=== PATIENT | male | born 1950 | race Hispanic/Latino ===

== ENCOUNTER 2022-01-25 06:49 | Day surgery (SDC) | payer OTHER ==
[2022-01-25 07:22] LABS: Absolute Lymphocytes (CBC) 1.3 K/uL (0.7-4.9); Hematocrit 37.3 % (39.6-49.0); Lymphocytes % 20.5 % (15.3-44.8); MCV 86.4 fL (80-100); MPV 8.3 fL (7.6-11.3); RBC Red Blood Cell Count 4.32 M/uL (4.33-5.43)
[2022-01-25 07:31] LABS: Protime INR 1.09
[2022-01-25 07:40] LABS: Potassium 3.9 mmol/L (3.5-5.1)
[2022-01-25] MEDS ORDERED: NA CHLORIDE 0.9% 500 ML ONE (08:07)
[2022-01-25 08:18] VITALS: TEMP 97.5; BMI 27.8
[2022-01-25] MEDS ORDERED: FENTANYL CITR 100 MCG/2 ML ONE (08:36)
[2022-01-25] MEDS ORDERED: MIDAZOLAM HCL 2 MG/2 ML INJ ONE (08:36)
[2022-01-25] MEDS ORDERED: NALOXONE 0.4 MG/ML VIAL ONE (08:37)
[2022-01-25] MEDS ORDERED: FLUMAZENIL 0.1 MG/ML (5 mL VIAL) IV ONE (08:37)
--- NOTE | 2022-01-25 10:41 | RAD REPORT ---
EXAM DESCRIPTION: CT - Renal Biopsy CT - 01/25/2022 10:19 am CLINICAL HISTORY: renal biopsy Renal failure COMPARISON: Urinary Bladder dated 01/04/2022; Renal Ultrasound-Complete dated 01/04/2022 FINDINGS: Preoperative diagnosis: Renal failure Post operative diagnosis: Same Conscious Sedation: 45 minutes IV conscious sedation was utilized. IV fentanyl and midazolam was admi nistered. Patient was continuously monitored by nursing staff. Contrast used: NONE Estimated blood loss: less than 5 mL Specimens: 3 x 18 gauge core specimens The patient was placed prone on the table and the right posterior back area was prepped and draped in the usual sterile fashion. 1% lidocaine was infiltrated into the subcutaneous tissues for local anes thesia. Under computed tomographic guidance, a 17 gauge introducer was advanced into the inferior rig ht kidney. Subsequently, a 18 gauge, 15 cm long, 20 mm throw core biopsy gun was advanced into the ki dney and 3 cores were obtained. Postprocedure imaging demonstrated no complications. Samples were given to pathology for analysis. Th e patient tolerated the procedure without immediate complication and transferred to the recovery room in stable condition. IMPRESSION: Successful CT-guided nonfocal renal biopsy. 45 minutes of IV conscious sedation was utilized. All CT scans are performed using dose optimization technique as appropriate and may include automated exposure control or mA/KV adjustment according to patient size.
[2022-01-25 11:07] VITALS: O2SAT 98
[2022-01-25 13:00] VITALS: BP 147/65
== END 2022-01-25 12:20 | disposition home or self-care (01) ==
LOC: DS 06:49
PROVIDERS: ATTEND Internal Medicine
DX: I12.0 Hypertensive chronic kidney disease with stage 5 chronic kidney disease or end stage renal disease (principal); N17.9 Acute kidney failure, unspecified; N02.8 Recurrent and persistent hematuria with other morphologic changes
CPT/HCPCS: 85025; 80048; 36415; 85610; 88300; 85730; 50200; J2250; J3010; J7040; J2310

== ENCOUNTER 2022-09-27 11:08 | Inpatient (IN) | payer OTHER ==
[2022-09-27 11:34] LABS: Hematocrit 34.3 % (39.6-49.0); Lymphocytes % 15.8 % (15.3-44.8); MCV 89.7 fL (80-100); RBC Red Blood Cell Count 3.83 M/uL (4.33-5.43)
[2022-09-27 11:52] LABS: Protime INR 0.88
[2022-09-27 11:55] LABS: Albumin 3.4 g/dL (3.4-5.0); Bilirubin Direct 0.2 mg/dL (0-0.2); Bilirubin Indirect, Calculated 0.4 mg/dL (0.2-0.8); Bilirubin Total 0.6 mg/dL (0.2-1.0); Magnesium 1.9 mg/dL (1.6-2.4); Potassium 3.8 mEq/L (3.5-5.1); Protein, Total 6.8 g/dL (6.4-8.2); Troponin High Sensitivity 13.2 pg/mL (<58.9)
--- NOTE | 2022-09-27 12:14 | EDPHYS ---
Physician Documentation [facility] Name: Abner Dhillon Jr Age: 72 yrs Sex: Male : 1950 Arrival Date: 09/27/2022 Time: 11:08 Bed 2 Private MD: ED Physician Columba Hernandez HPI: 09/27 11:19 This 72 yrs old Male presents to ER via Unassigned with complaints of Chest sp3 Pain. 11:19 72-year-old male with extensive past medical history including diabetes, hypertension, sp3 renal insufficiency now presents to the ED with chief complaint 48 hours of chest pain, chest pressure, left arm pain that started at rest. Patient "mowed the grass" this morning which further elucidated the pain. Currently has mild pain with shortness of breath. On review of systems, he denies headache, neck pain, pain, abdominal pain, nausea, vomiting, diarrhea, travel history, prolonged immobilization, known sick contacts, or any other signs or symptoms at this time.. Historical: - Allergies: 11:20 PENICILLINS; ph - PMHx: 11:20 diabetes mellitus; Hypertensive disorder; ph - PSHx: 11:20 Appendectomy; FÉLIX knee; félix shoulder; ph - Immunization history:: Adult Immunizations unknown. - Social history:: Smoking status: Patient/guardian denies using tobacco, but has a distant history of tobacco abuse. ROS: 11:20 Constitutional: Negative for fever, chills, and weight loss, Eyes: Negative for injury, sp3 pain, redness, and discharge, ENT: Negative for injury, pain, and discharge, Neck: Negative for injury, pain, and swelling, Abdomen/GI: Negative for abdominal pain, nausea, vomiting, diarrhea, and constipation, Back: Negative for injury and pain, MS/Extremity: Negative for injury and deformity, Skin: Negative for injury, rash, and discoloration, Neuro: Negative for headache, weakness, numbness, tingling, and seizure, Psych: Negative for depression, anxiety, suicide ideation, homicidal ideation, and hallucinations, Allergy/Immunology: Negative for hives, rash, and allergies, Endocrine: Negative for neck swelling, polydipsia, polyuria, polyphagia, and marked weight changes, Hematologic/Lymphatic: Negative for swollen nodes, abnormal bleeding, and unusual bruising. 11:20 All other systems are negative. Exam: 11:20 Constitutional: This is a well developed, well nourished patient who is awake, alert, sp3 and in no acute distress. Head/Face: Normocephalic, atraumatic. Eyes: Pupils equal round and reactive to light, extra-ocular motions intact. Lids and lashes normal. Conjunctiva and sclera are non-icteric and not injected. Cornea within normal limits. Periorbital areas with no swelling, redness, or edema. ENT: Nares patent. No nasal discharge, no septal abnormalities noted. External auditory canals are clear. Oropharynx with no redness, swelling, or masses, exudates, or evidence of obstruction, uvula midline. Mucous membranes moist. Neck: Trachea midline, no thyromegaly or masses palpated, and no cervical lymphadenopathy. Supple, full range of motion without nuchal rigidity, or vertebral point tenderness. No Meningismus. Chest/axilla: Normal chest wall appearance and motion. Nontender with no deformity. No lesions are appreciated. Cardiovascular: Regular rate and rhythm with a normal S1 and S2. No gallops, murmurs, or rubs. Normal PMI, no JVD. No pulse deficits. Respiratory: Lungs have equal breath sounds bilaterally, clear to auscultation and percussion. No rales, rhonchi or wheezes noted. No increased work of breathing, no retractions or nasal flaring. Abdomen/GI: Soft, non-tender, with normal bowel sounds. No distension or tympany. No guarding or rebound. No evidence of tenderness throughout. Back: No spinal tenderness. No costovertebral tenderness. Full range of motion. Skin: Warm, dry with normal turgor. Normal color with no rashes, no lesions, and no evidence of cellulitis. MS/ Extremity: Pulses equal, no cyanosis. Neurovascular intact. Full, normal range of motion. Neuro: Awake and alert, GCS 15, oriented to person, place, time, and situation. Cranial nerves II-XII grossly intact. Motor strength 5/5 in all extremities. Sensory grossly intact. Cerebellar exam normal. Normal gait. Psych: Awake, alert, with orientation to person, place and time. Behavior, mood, and affect are within normal limits. 11:20 ECG was reviewed by the Attending Physician. EKG demonstrates normal sinus rhythm at 95 bpm with normal intervals, slight leftward axis, normal QRS, nonspecific diffuse ST/T changes without evidence of acute ischemia. Vital Signs: 11:18 BP 172 / 63; Pulse 101; Resp 18; Temp 97.2; Pulse Ox 99% on R/A; Weight 86.18 kg; ph Height 5 ft. 9 in. ; 12:19 BP 141 / 61; Resp 18; Pulse Ox 98% on R/A; mb9 14:05 BP 147 / 54; Pulse 88; Resp 18; Pulse Ox 98% on R/A; Pain 0/10; mb9 15:19 BP 149 / 59; Pulse 89; Resp 17; Pulse Ox 97% on R/A; Pain 0/10; mb9 11:18 Body Mass Index 28.06 (86.18 kg, 175.26 cm) ph 14:05 Pain Scale: Adult mb9 15:19 Pain Scale: Adult mb9 MDM: 11:17 Patient medically screened. sp3 11:21 Data reviewed: vital signs, nurses notes, lab test result(s), EKG, radiologic studies. sp3 ED course: 72-year-old male with chest pain. Consider acute coronary syndrome, pulmonary pathology including infection, vascular pathology, PE, musculoskeletal pain, nonspecific chest pain. Work-up will include laboratory values, chest x-ray, EKG and general observation. Heart score to be determined and will guide further disposition.. 12:12 ED course: Laboratory results reviewed. No concerning findings. Chest x-ray is normal. sp3 Will place patient in observation status with cardiology consultation for further work-up as needed. Given patient's age, comorbidities and presentation, heart score is moderate in nature.. 09/27 11:17 Order name: Basic Metabolic Panel; Complete Time: 12:10 sp3 09/27 11:17 Order name: CBC with Diff; Complete Time: 12:10 3 09/27 11:17 Order name: LFT's; Complete Time: 12:10 sp3 09/27 11:17 Order name: Magnesium; Complete Time: 12:10 sp3 09/27 11:17 Order name: NT PRO-BNP; Complete Time: 12:10 3 09/27 11:17 Order name: PT-INR; Complete Time: 12:10 3 09/27 11:17 Order name: Troponin HS; Complete Time: 12:10 sp3 09/27 11:22 Order name: D-Dimer sp3 09/27 13:20 Order name: Troponin High Sensitivity EDMS 09/27 13:20 Order name: Troponin High Sensitivity EDMS 09/27 13:20 Order name: Troponin High Sensitivity EDMS 09/27 13:24 Order name: Magnesium EDMS 09/27 13:24 Order name: Phosphorus EDMS 09/27 13:24 Order name: T4 Free EDMS 09/27 13:24 Order name: Thyroid Stimulating Hormone EDMS 09/27 13:24 Order name: Urinalysis w/ reflexes EDMS 09/27 13:24 Order name: CBC with Automated Diff EDMS 09/27 13:24 Order name: CBC with Automated Diff EDMS 09/27 13:24 Order name: Comprehensive Metabolic Panel EDMS 09/27 13:24 Order name: Comprehensive Metabolic Panel EDMS 09/27 11:17 Order name: XRAY Chest (1 view) 3 09/27 13:20 Order name: Echo with Doppler EDMS 09/27 11:17 Order name: EKG; Complete Time: 11:18 sp3 09/27 13:24 Order name: 60g Consistent Carbohydrate (ADA 1800/2000) EDMS 09/27 13:24 Order name: CONS Physician Consult EDMS 09/27 11:17 Order name: Cardiac monitoring; Complete Time: 11:20 sp3 09/27 11:17 Order name: EKG - Nurse/Tech; Complete Time: 11:20 sp3 09/27 11:17 Order name: IV Saline Lock; Complete Time: 11:31 sp3 09/27 11:17 Order name: Labs collected and sent; Complete Time: 11:31 sp3 09/27 11:17 Order name: O2 Per Protocol; Complete Time: 11:20 sp3 09/27 11:17 Order name: O2 Sat Monitoring; Complete Time: 11:20 sp3 Administered Medications: No medications were administered Disposition Summary: 09/27/22 12:13 Hospitalization Ordered Hospitalization Status: Observation sp3 Provider: Juan Carlos Carmona sp3 Location: Telemetry/MedSurg (observation) sp3 Condition: Stable sp3 Problem: new sp3 Symptoms: are unchanged sp3 Bed/Room Type: Standard sp3 Room Assignment: [facility](09/27/22 14:17) bd Diagnosis - Chest pain, unspecified sp3 Forms: - Medication Reconciliation Form sp3 - SBAR form sp3 Signatures: Dispatcher [employer] EDDiana Betancourt Patricia, RN RN Columba Escamilla MD MD sp3 Corrections: (The following items were deleted from the chart) 14:17 12:13 sp3 bd
--- NOTE | 2022-09-27 12:14 | ER ---
Nurse's Notes [facility] Name: Abner Dhillon Jr Age: 72 yrs Sex: Male : 1950 Arrival Date: 09/27/2022 Time: 11:08 Bed 2 Private MD: Diagnosis: Chest pain, unspecified Presentation: 09/27 11:18 Chief complaint: Patient states: Midsternal chest pain radiating to L arm that started ph yesterday, also reports blurred vision and mild SOB. Coronavirus screen: Vaccine status: Patient reports receiving the 2nd dose of the covid vaccine. Ebola Screen: No symptoms or risks identified at this time. Initial Sepsis Screen: Does the patient meet any 2 criteria? No. Patient's initial sepsis screen is negative. Does the patient have a suspected source of infection? No. Patient's initial sepsis screen is negative. Risk Assessment: Do you want to hurt yourself or someone else? Patient reports no desire to harm self or others. Onset of symptoms was September 27, 2022. 11:18 Method Of Arrival: Ambulatory 11:18 Acuity: JOSE 2 ph Historical: - Allergies: 11:20 PENICILLINS; ph - PMHx: 11:20 diabetes mellitus; Hypertensive disorder; ph - PSHx: 11:20 Appendectomy; FÉLIX knee; félix shoulder; ph - Immunization history:: Adult Immunizations unknown. - Social history:: Smoking status: Patient/guardian denies using tobacco, but has a distant history of tobacco abuse. Screenin:06 [facility] ED Fall Risk Assessment (Adult) History of falling in the last 3 months, mb9 including since admission No falls in past 3 months (0 pts) Confusion or Disorientation No (0 pts) Intoxicated or Sedated No (0 pts) Impaired Gait No (0 pts) Mobility Assist Device Used No (0 pt) Altered Elimination No (0 pt) Score/Fall Risk Level 0 - 2 = Low Risk Oriented to surroundings, Maintained a safe environment, Educated pt \T\ family on fall prevention, incl call for assistance when getting out of bed. Abuse screen: Denies threats or abuse. Nutritional screening: No deficits noted. Tuberculosis screening: No symptoms or risk factors identified. Assessment: 14:06 General: Appears in no apparent distress. Behavior is calm, cooperative, appropriate mb9 for age. Pain: Denies pain. Pain:. Neuro: Level of Consciousness is awake, alert, obeys commands, Oriented to person, place, time, situation, Appropriate for age. Cardiovascular: Denies chest pain, Heart tones S1 S2 present Rhythm is regular. Respiratory: Airway is patent Respiratory effort is even, unlabored, Respiratory pattern is regular, symmetrical, Denies shortness of breath. GI: Abdomen is round non-distended, Bowel sounds present X 4 quads. Derm: Skin is pink, warm \T\ dry. 14:21 Reassessment: Bed 212 assigned, attempted to call report, Meghan reports the nurse has jlInga not been notified of pt assignment yet and will call back. 14:54 Reassessment: Attempted to call report, Meghan reports LUCRECIA Martinez unavailable, will jlInga call back. 15:19 Reassessment: Report called to LUCRECIA French. mb9 Vital Signs: 11:18 BP 172 / 63; Pulse 101; Resp 18; Temp 97.2; Pulse Ox 99% on R/A; Weight 86.18 kg; ph Height 5 ft. 9 in. ; 12:19 BP 141 / 61; Resp 18; Pulse Ox 98% on R/A; mb9 14:05 BP 147 / 54; Pulse 88; Resp 18; Pulse Ox 98% on R/A; Pain 0/10; mb9 15:19 BP 149 / 59; Pulse 89; Resp 17; Pulse Ox 97% on R/A; Pain 0/10; mb9 11:18 Body Mass Index 28.06 (86.18 kg, 175.26 cm) ph 14:05 Pain Scale: Adult mb9 15:19 Pain Scale: Adult mb9 ED Course: 11:09 Patient arrived in ED. am2 11:09 Columba Hernandez MD is Attending Physician. sp3 11:20 Triage completed. ph 11:20 Shalini Shepherd, LUCRECIA is Primary Nurse. ko1 11:20 Arm band placed on Patient placed in an exam room, on a stretcher. ph 11:30 Inserted saline lock: 20 gauge in right antecubital area, using aseptic technique. mb9 11:31 Basic Metabolic Panel Sent. ko1 11:31 CBC with Diff Sent. ko1 11:31 LFT's Sent. ko1 11:31 Magnesium Sent. ko1 11:31 NT PRO-BNP Sent. ko1 11:31 PT-INR Sent. ko1 11:31 Troponin HS Sent. ko1 11:32 D-Dimer Sent. ko1 12:05 Primary Nurse role handed off by Shalini Shepherd, RN mb9 12:05 Hannah Ellington, RN is Primary Nurse. mb9 12:13 Juan Carlos Carmona is Hospitalizing Provider. sp3 12:17 XRAY Chest (1 view) In Process Unspecified. EDMS 14:06 Placed in gown. Bed in low position. Call light in reach. Side rails up X 1. Client mb9 placed on continuous cardiac and pulse oximetry monitoring. NIBP monitoring applied. monitor technician on. 14:07 No provider procedures requiring assistance completed. mb9 15:20 Patient admitted, IV remains in place. mb9 Administered Medications: No medications were administered Medication: 14:08 VIS not applicable for this client. mb9 Outcome: 12:13 Decision to Hospitalize by Provider. sp3 15:19 Admitted to Med/surg room 212, with chart, Report called to LUCRECIA French mb9 15:19 Condition: stable 15:19 Instructed on the need for admit. 15:21 Patient left the ED. mb9 Signatures: Dispatcher [employer] EDMS Sarah Marks, RN RN Alesha Kay, RN RN [id number] Bessie Glez Setul, MD MD sp3 Shalini Shepherd, RN RN ko1 Hannah Ellington, RN RN mb9
--- NOTE | 2022-09-27 12:39 | RAD REPORT ---
EXAM DESCRIPTION: Ian Single View09/27/2022 12:15 pm CLINICAL HISTORY: CHEST PAIN COMPARISON: CHEST PA AND LAT 2 VIEW dated 06/15/2007 TECHNIQUE: Portable AP view of the chest. FINDINGS: The lungs are clear.Right peripheral basal rounded density measuring 1.3 centimeter is sta ble and may reflect a calcified granuloma. No pneumothorax or effusion. The cardiomediastinal contour s are unremarkable. IMPRESSION: No acute cardiopulmonary process.
[2022-09-27] MEDS ORDERED: HYDROCODONE/APAP 5/325 MG TAB PO PRN (13:18)
[2022-09-27] MEDS ORDERED: ACETAMINOPHEN 325 MG TABLET PO PRN (13:18)
[2022-09-27] MEDS ORDERED: ONDANSETRON 4 MG/2 ML VIAL IV PRN (13:21)
[2022-09-27] MEDS ORDERED: ASPIRIN 81 MG CHEWABLE TABLET PO ONE (13:21)
[2022-09-27] MEDS ORDERED: GLUCAGON 1 MG/VIAL IM PRN (13:23)
[2022-09-27] MEDS ORDERED: D10W 250 ML BAG IV PRN (13:26)
--- NOTE | 2022-09-27 13:26 | P.HP ---
Certification for Inpatient Patient admitted to: Observation With expected LOS: <2 Midnights Patient will require the following post-hospital care: None Practitioner: I am a practitioner with admitting privileges, knowledge of patient current condition, hospital course, and medical plan of care. Services: Services provided to patient in accordance with Admission requirements found in Title 42 Section 412.3 of the Code of Federal Regulations Patient History Date of Service: 09/27/22 Reason for admission: Chest pain History of Present Illness: Patient is a 72-year-old male with a past medical history significant for DM 2, hypertension, CKD who presents with complaint of substernal chest pain onset this morning. Patient rated pain as 8/10 in severity and described pain as pressure in quality. Patient indicated that pain radiates to his neck. Patient spouse reported that yesterday patient blood pressure has been unstable and patient has been anxious. Patient reported associated signs and symptoms of tingling on the left fingers and generalized malaise. Patient denies any other signs and symptoms. Symptoms are aggravated or relieved by nothing. Patient decided to present to the hospital for medical evaluation. Allergies Penicillins Adverse Reaction (Mild, Verified 01/25/22 06:52) Anaphylaxis Home Medications: Amlodipine [Norvasc] 5 mg PO DAILY 01/25/22 Glipizide [Glipizide ER] 10 mg PO BID 01/25/22 Hydralazine HCl 100 mg PO BID 01/25/22 Metformin ER [Glucophage ER] 500 mg PO TID 01/25/22 Rosuvastatin Calcium 20 mg PO DAILY 01/25/22 - Past Medical/Surgical History -: HTN -: CKD -: HLD -: DM 2 Past Surgical History: Reviewed- Non-Contributory - Family History Father -: Heart disease, Cancer, Other (see notes) (NE ) Notes: Bone cancer Mother -: Cancer Notes: colon cancer - Social History Smoking Status: Former smoker Alcohol use: No CD- Drugs: No Caffeine use: Yes Place of Residence: Home Review of Systems General: Malaise Eyes: Unremarkable ENT: Other (Neck pain) Respiratory: Unremarkable Cardiovascular: Chest Pain Gastrointestinal: Unremarkable Genitourinary: Unremarkable Musculoskeletal: Neck Pain Integumentary: Unremarkable Neurological: Other (Left fingers tingling) Lymphatics: Unremarkable Physical Examination - Physical Exam General: Alert, In no apparent distress, Oriented x3, Cooperative HEENT: Atraumatic, PERRLA, Mucous membr. moist/pink, EOMI, Sclerae nonicteric Neck: Supple, 2+ carotid pulse no bruit, No LAD, Without JVD or thyroid abnormality Respiratory: Clear to auscultation bilaterally, Normal air movement Cardiovascular: No edema, Regular rate/rhythm, Normal S1 S2 Capillary refill: <2 Seconds Gastrointestinal: Normal bowel sounds, Soft and benign, Non-distended, No tenderness Musculoskeletal: No clubbing, No swelling, No contractures, No tenderness Integumentary: No rashes, No breakdown, No significant lesion Neurological: Normal speech, Normal strength at 5/5 x4 extr, Normal tone, Normal affect Lymphatics: No axilla or inguinal lymphadenopathy - Studies Laboratory Data (last 24 hrs) 09/27/22 11:25: PT 10.5, INR 0.88 09/27/22 11:25: WBC 6.30, Hgb 11.7 L, Hct 34.3 L, Plt Count 237 09/27/22 11:25: Sodium 140, Potassium 3.8, BUN 24 H, Creatinine 2.25 H, Glucose 144 H, Magnesium 1.9, Total Bilirubin 0.6, AST 17, ALT 24, Alkaline Phosphatase 52 Assessment and Plan - Plan --Chest pain. To rule out ACS. Will trend serial troponins--negative so far. Cardiology consulted. Echo currently pending to assess LV\valvular function and wall motion. Will await further recommendation from assurance assistant. --CKD 3B. Stable. We will continue to monitor renal functions. Nephrology consulted. Will await further recommendations. --DM2. BS monitoring with sliding scale insulin. --Hypertension. Poorly controlled. Continue home medications and hydralazine as needed. --Anemia of chronic disease. H&H stable. We will continue to monitor hemoglobin and transfuse if less than 7.0. --Hyperlipidemia. Continue statin. --DVT prophylaxis with Lovenox subQ. Discharge Plan: Home Plan to discharge in: 48 Hours - Advance Directives Does patient have a Living Will: No Does patient have a Durable POA for Healthcare: No - Code Status/Comfort Care Code Status Assessed: Yes Physician Review: Patient Assessed, Agree with Above Assessment and Plan
[2022-09-27] MEDS: ENOXAPARIN 40 MG/0.4 ML SQ SCH (14:00)
[2022-09-27] MEDS ORDERED: ASPIRIN 81 MG CHEWABLE TABLET ONE (14:19)
[2022-09-27] MEDS ORDERED: ENOXAPARIN 40 MG/0.4 ML SQ ONE (14:20)
[2022-09-27] MEDS: INSULIN -REGULAR HUMAN 50 UNIT/0.5 ML ML SQ SCH ×2 (16:30→20:42)
[2022-09-27 16:38] VITALS: BMI 28.0
[2022-09-27] MEDS ORDERED: HYDRALAZINE HCL 20 MG/ML VIAL IV PRN (16:39)
[2022-09-27 17:54] LABS: Magnesium 1.9 mg/dL (1.6-2.4); Phosphorus 3.1 mg/dL (2.5-4.9); Thyroid Stimulating Hormone 3.31 uIU/mL (0.358-3.740)
[2022-09-27] MEDS ORDERED: PNEUMOCOCCAL VACCINE 0.5 ML IMVAC ONE (19:00)
[2022-09-27] MEDS: HYDRALAZINE HCL 25 MG TABLET PO SCH (20:41)
[2022-09-27] MEDS: AMLODIPINE 5 MG TAB PO SCH (20:41)
[2022-09-27 22:24] LABS: Specific Gravity 1.014 (1.005-1.030); Urine Bacteria None Seen /HPF (<20); Urine Bilirubin NEGATIVE (Negative); Urine Blood Negative (Negative); Urine Clarity Clear (Clear); Urine Color Light-Yellow (Yellow); Urine Glucose 4+ (Over) (Negative); Urine Mucus Slight /HPF (None Seen); Urine Protein 3+ (Negative); Urine RBC <5 /HPF (None Seen); Urine Urobilinogen Normal (Normal)
[2022-09-27 23:04] LABS: Troponin High Sensitivity 12.7 pg/mL (<58.9)
--- NOTE | 2022-09-28 01:59 | CON ---
Date of Consultation: 09/27/2022 Chief Complaint: Chest pain. History Of Present Illness: The patient presented to the hospital because of chest pain. He was fou nd to have elevated BUN and creatinine level. He has history of chronic kidney disease stage 3. Ser um creatinine previously was 1.8. During this admission, creatinine level is elevated over his previ ous baseline. The patient was complaining of chest pain and generalized weakness. On arrival to the hospital, potassium level was 3.8, sodium 140, BUN 24, and creatinine 2.25. Nephrology consultation is requested for abnormal renal function test. The patient was consulted by veneer sawyer. Echo cur davidtly is pending to assess left ventricular function and wall motion and troponin level was ordered. The patient has history of chronic kidney disease secondary to diabetes mellitus and hypertension ass ociated with proteinuria. The patient is taking multiple medications including metformin and glipizi de as well as Farxiga. The patient was complaining of substernal chest pain and pain has been recurr ent since this morning and rated as 8/10 in severity. He describes pain as pressure in quality. The patient had pain radiation to his neck. He denies syncope. Denies hemoptysis or wheezing. The pat ient has tingling to the left finger in the left upper extremity and complaining of generalized malai se. He denies bleeding from the lower GI. Denies melena or hematemesis. Home Medications: Amlodipine, glipizide, hydralazine, metformin, rosuvastatin as well as Farxiga. Past Medical History: Hypertension, chronic kidney disease stage 3, hyperlipidemia, and diabetes serjio litus type 2 associated with renal insufficiency. Family History: Father with heart disease and cancer. Mother with colon cancer. Social History: Former smoker. Denies alcohol. Denies recreational drugs. Review of Systems: General: Complained of generalized weakness, malaise. Eyes: Denies new vision changes. Ears, Nose, Mouth, And Throat: Denies sore throat or earache. Respiratory: Denies wheezing or hemoptysis. Cardiovascular: Has chest pain as described. : Denies dysuria or hematuria. Neurological: Denied tremor. Hand left finger tingling. Physical Examination: General: The patient is alert, oriented, not in acute distress. Eyes: EOMI. Anicteric sclerae. Neck: Supple. No JVD. No bruits. Respiratory: Clear to auscultation. Normal respiratory movement. Cardiovascular: S1, S2. No pericardial friction or rub. GI: Normal bowel sounds. No rebound. No guarding. Extremities: No edema. No clubbing. No cyanosis. Laboratory Data: WBC 6.3, hemoglobin 11.7, hematocrit 34.3, and platelet count 237. Potassium 3.8, sodium 140, creatinine 2.25, total bilirubin 0.6, magnesium 1.9. Impression And Plan: 1.Chest pain. Cardiology workup was initiated for possible coronary artery disease and acute you ry syndrome. Continue to monitor troponin. Check CK level to evaluate for rhabdomyolysis. 2.Diabetes mellitus. Continue insulin. Avoid metformin and glipizide due to acute kidney injury an d chronic kidney disease. 3.Hyperlipidemia. Continue statin. Check CK level to rule out rhabdomyolysis. Renal ultrasound wa s ordered to rule out hydronephrosis, obstructive uropathy. Monitor bladder scan if needed. 4.Check urinalysis to screen for abnormal sediment and screen proteinuria to evaluate for possible M HOLLY. EB/MODL Voice ID: [id number] Report ID: [id number]
[2022-09-28 03:52] LABS: Absolute Lymphocytes (CBC) 1.2 K/uL (0.7-4.9); Hematocrit 30.5 % (39.6-49.0); Lymphocytes % 26.5 % (15.3-44.8); MPV 8.7 fL (7.6-11.3); RBC Red Blood Cell Count 3.43 M/uL (4.33-5.43)
[2022-09-28 04:20] LABS: Bilirubin Total 0.5 mg/dL (0.2-1.0); Potassium 3.8 mEq/L (3.5-5.1)
--- NOTE | 2022-09-28 06:57 | P.PN ---
Date of Service: 09/28/22 Subjective: feels back to his normal self this morning no chest pain since last night states hes been having vision troubles since ~Tuesday (same feeling as when they dilate eyes) - resolved this morning when he woke up states BP was high at homes - 150-180s systolic ROS: 10 point ROS as noted above, otherwise negative Physical Exam: GEN: Alert, oriented, NAD HEENT: Normal conjunctiva, sclera anicteric CV: Regular rate and rhythm, no edema Pulm: Nonlabored respirations on room air ABD: Soft, nontender, nondistended Neuro: Normal speech, normal affect, no focal defecit vitals reviewed Problem List: Chest pain blurred vision, acute CKD 3B NIDDM2 Hypertension Anemia of chronic disease Hyperlipidemia Chest pain Troponin - negative x3 multiple risk factors Echo currently pending Cardiology consulted recommends stress test - ordered for 09/28 blurred vision unclear etiology CVA vs HTN resolved CT brain 09/28 ordered; r/o CVA CKD 3B Stable. continue to monitor renal function Nephrology consulted. renal u/s 09/28 - mild echogenic kidneys b/l 24hr urine collection ordered - started 09/28 AM NIDDM2 sliding scale insulin hold metformin Hypertension Poorly controlled. Continue home medications and hydralazine as needed Anemia of chronic disease H&H stable. continue to monitor hemoglobin and transfuse if less than 7.0. Hyperlipidemia Continue statin VTE: Lovenox Code: Full Dispo: Home, anticipate tomorrow pending urine studies / collection, stress test results
[2022-09-28] MEDS: INSULIN -REGULAR HUMAN 50 UNIT/0.5 ML ML SQ SCH ×4 (07:30→21:00)
[2022-09-28] MEDS ORDERED: REGADENOSON 0.4 MG/5 ML SYR IV ONE (08:00)
[2022-09-28] MEDS: ENOXAPARIN 40 MG/0.4 ML SQ SCH (09:00)
[2022-09-28] MEDS ORDERED: POTASSIUM CL SA 10 MEQ TAB PO ONE (09:00)
--- NOTE | 2022-09-28 09:32 | RAD REPORT ---
EXAM DESCRIPTION: US - Renal Ultrasound-Complete - 09/28/2022 12:12 am CLINICAL HISTORY: ckd , duncan Flank pain COMPARISON: Renal Ultrasound-Complete dated 01/04/2022 FINDINGS: Both kidneys show thin cortices bilaterally. Both kidneys also mildly echogenic. The right kidney measures 11.3 x 5.5 x 4.7 cm.. Minimally complex right renal cyst is unchanged. No a ggressive renal mass or hydronephrosis seen. The left kidney measures 10.9 x 6.2 x 5.4 cm.. No hydronephrosis, focal mass or perinephric fluid. The urinary bladder is incompletely distended without gross abnormality seen. IMPRESSION: Mildly echogenic kidneys bilaterally likely indicating medical renal disease.
[2022-09-28] MEDS: ASPIRIN 81 MG CHEWABLE TABLET PO SCH (09:41)
[2022-09-28] MEDS: AMLODIPINE 5 MG TAB PO SCH ×2 (09:41→22:17)
[2022-09-28] MEDS: ROSUVASTATIN 10 MG TAB PO SCH (09:42)
[2022-09-28] MEDS: HYDRALAZINE HCL 25 MG TABLET PO SCH ×3 (09:42→22:17)
--- NOTE | 2022-09-28 10:21 | RAD REPORT ---
EXAM DESCRIPTION: CT - Head Brain Wo Cont - 09/28/2022 9:58 am CLINICAL HISTORY: blurred vision, r/o CVA Headache, drowsiness, CVA symptomology COMPARISON: No comparisons TECHNIQUE: All CT scans are performed using dose optimization technique as appropriate and may inclu de automated exposure control or mA/KV adjustment according to patient size. FINDINGS: No intracranial hemorrhage, hydrocephalus or extra-axial fluid collection.Mild generalized brain atrophy is present with mild periventricular and deep white matter chronic microvascular ische tania changes.No areas of brain edema or evidence of midline shift. The paranasal sinuses and mastoids are clear. The calvarium is intact. IMPRESSION: No acute intracranial abnormality. If there is continued clinical concern for CVA, MR imaging of the brain would be recommended.
[2022-09-28] MEDS: ACETYLCYST 20% 800 MG/4 ML VIAL PO SCH ×2 (10:39→23:19)
--- NOTE | 2022-09-28 11:23 | PN ---
Date of Progress Note: 09/28/2022 Subjective: Patient was admitted with chest pain, acute kidney injury. Patient is known to have chronic kidney disease stage 3B. Patient does not have any low blood pressure. In fact, his blood pressure was elevated. Over the night, olmesartan has been held and metformin. Patient planned for stress test today. Physical Examination: Vital Signs: Blood pressure 156/78, pulse of 80, afebrile. Chest: Faint rales on the left base. Heart: S1, S2. Systolic murmur. Abdomen: Soft, nontender. Extremities: Trace edema. Neurologic: Alert. No focality. Laboratory Data: Sodium 138, potassium 3.8, bicarb 26, BUN 27, creatinine 2.2, calcium 8.4. Hemoglobin 10.6. Renal ultrasound: Normal size kidney 11.3/10.9, echogenic. No hydronephrosis. Urinalysis has +3 protein, not quantified yet of the proteinuria. Current Medications: The patient is on include: 1. Amlodipine 5 mg b.i.d. 2. Hydralazine 100 t.i.d. 3. Rosuvastatin. Assessment And Plan: 1. Kidney injury, normal size kidney, proteinuric nonnephrotic on advanced chronic kidney disease, mostly secondary to cardiorenal. I going to go ahead and start the patient on gentle hydration and we will follow up the patient. I agree with holding metformin and ARB. 2. I am going to send for uric acid. We will quantify the protein creatinine and we will follow up the patient. 3. Hypertension with the presence of acute kidney injury. I agree with holding the olmesartan, currently not controlled. I am going to go ahead and add carvedilol 6.25 b.i.d. and we will follow up the patient. 4. Chest pain. Plan for stress test. We will follow up with Cardiology. Hold losartan. Add carvedilol. 5. Hypokalemia. We will supplement cautiously. I will send for TSH and magnesium. time spend exam the patient face to face reviewing data lab and radiology placing order , discussing with patient and nursing staff discussing with hospitalisit >35min MARK ANTHONY Voice ID: [id number] Report ID: [id number] [facility]
--- NOTE | 2022-09-28 14:15 | RAD REPORT ---
EXAM DESCRIPTION: NM - Rest Stress Cardiac Imaging - 09/28/2022 1:51 pm CLINICAL HISTORY: CP COMPARISON: Head Brain Wo Cont dated 09/28/2022; Chest Single View dated 09/27/2022 TECHNIQUE: The patient was administered approximately 10.9 mCi of Tc 99m Sestamibi prior to resting SPECT imaging of the heart. The patient was then administered approximately 32.2 mCi of Tc 99m Sestam ibi following exercise or pharmacologic stress. Multiplanar SPECT images were reviewed. FINDINGS: Moderate-sized fixed defects involving the apex, mid to apical anterior wall, and apical s egments of the inferior and septal delgado. Small region of reversible defect involving the apical segment inferior wall and junction with the la teral wall. The end diastolic volume is 117 ml, the end systolic volume is 38 ml, and the ejection fraction is 68 %. IMPRESSION: Small region of reversible defect concerning for ischemia involving the apical segment i nferior wall and junction with the lateral wall. Moderate-sized fixed defects concerning for infarct involving the apex, mid to apical anterior wall, and apical segments of the inferior and septal delgado. Normal left ventricular ejection fraction, 68%.
[2022-09-28] MEDS: carvediloL 6.25 MG TAB PO SCH (22:16)
[2022-09-29 04:05] LABS: Magnesium 2.2 mg/dL (1.6-2.4); Potassium 4.3 mEq/L (3.5-5.1); Uric Acid 7.6 mg/dL (3.5-7.2)
--- NOTE | 2022-09-29 05:01 | EKG ---
Test Date: 2022-09-27 Test Time: 11:18:22 Application Coordinator: GARFIELD MEASUREMENT RESULTS: Intervals: Rate: 95 MD: 178 QRSD: 94 QT: 348 QTc: 437 [place]: P: 44 MD: 178 QRS: -34 T: 31 INTERPRETIVE STATEMENTS: Normal sinus rhythm Left axis deviation Abnormal ECG Compared to ECG 02/17/2022 07:37:01 Left-axis deviation now present Electronically Signed On 09-29-22 04:54:58 CDT by Darian Matos
--- NOTE | 2022-09-29 07:00 | ECHO ---
HEIGHT: 5 ft 9 in WEIGHT: 191 lb 1.6 oz DATE OF STUDY: 09/28/[address]: Clari Gonzalez 2-DIMENSIONAL: YES M.MODE: YES DOPPLER: YES COLOR FLOW: YES TDS: PORTABLE: YES DEFINITY: BUBBLE STUDY: DIAGNOSIS: CHEST PAIN CARDIAC HISTORY: CATHERIZATION: NO SURGERY: NO PROSTHETIC VALVE: NO PACEMAKER: NO MEASUREMENTS (cm) DIASTOLIC (NORMALS) SYSTOLIC (NORMALS) IVSd 1.1 (0.6-1.2) LA Diam 3.2 (1.9-4.0) LVEF 69% LVIDd 4.7 (3.5-5.7) LVIDs 2.9 (2.0-3.5) %FS 39% LVPWd 1.2 (0.6-1.2) Ao Diam 2.9 (2.0-3.7) 2 DIMENSIONAL ASSESSMENT: RIGHT ATRIUM: NORMAL LEFT ATRIUM: NORMAL RIGHT VENTRICLE: NORMAL LEFT VENTRICLE: NORMAL TRICUSPID VALVE: NORMAL MITRAL VALVE: NORMAL PULMONIC VALVE: NORMAL AORTIC VALVE: NORMAL PERICARDIAL EFFUSION: NONE AORTIC ROOT: NORMAL LEFT VENTRICULAR WALL MOTION: NORMAL DOPPLER/COLOR FLOW: NORMAL COMMENTS: 1. NORMAL 2-DIMENSIONAL ECHOCARDIOGRAM WITH DOPPLER. 2. NO WALL MOTION ABNORMALITY 3. NO EFFUSION TECHNOLOGIST: TEODORO WAY
--- NOTE | 2022-09-29 07:13 | P.PN ---
Date of Service: 09/29/22 Subjective: Feeling pretty good today, wanting to go home Denies chest pain this morning, no SOB stress test positive yesterday, scheduled for cardiac cath today no acute events overnight ROS: 10 point ROS as noted above, otherwise negative Physical Exam: GEN: Alert, oriented, NAD HEENT: Normal conjunctiva, sclera anicteric CV: Regular rate and rhythm, no edema Pulm: Nonlabored respirations on room air ABD: Soft, nontender, nondistended Neuro: Normal speech, normal affect, no focal deficit vitals reviewed Problem List: Chest pain, angina transient blurred vision, acute CKD 3B NIDDM2 Hypertension Anemia of chronic disease Hyperlipidemia Chest pain Troponin - negative x3 multiple risk factors Echo - normal Cardiology consulted Stress test 09/28 - Small region of reversible defect concerning for ischemia involving the apical segment inferior wall and junction with the lateral wall Moderate-sized fixed defects concerning for infarct involving the apex, mid to apical anterior wall, and apical segments of the inferior and septal delgaod cardiac cath ordered 09/29 will need to be monitored for ~48hrs after cath for renal function blurred vision unclear etiology; transient at home, resolved 09/[address] brain 09/28 - negative CKD 3B Stable. continue to monitor renal function Nephrology consulted renal u/s 09/28 - mild echogenic kidneys b/l 24hr urine collection ordered - started 09/28 AM NIDDM2 sliding scale insulin hold metformin Hypertension Poorly controlled. Continue home medications and hydralazine as needed Anemia of chronic disease H&H stable. continue to monitor hemoglobin and transfuse if less than 7.0. Hyperlipidemia Continue statin VTE: Lovenox Code: Full Dispo: Home, ~2 days - monitor renal function, IVF after cath pending urine studies / collection, heart cath
[2022-09-29] MEDS: INSULIN -REGULAR HUMAN 50 UNIT/0.5 ML ML SQ SCH ×4 (07:30→21:00)
--- NOTE | 2022-09-29 07:53 | TREADPHA ---
DX: CHEST PAIN Date of Study: 09/28/2022 Ht: 5' 9 " Wt: 191 lb 1.6 oz Consulting Physician: CHRISTI MEDICATIONS: HYDRALAZINE, NORVASC, ASPIRIN, ROSUVASTANNI, KLOR-CON HISTORY: 72 YEAR OLD MALE WITH COMPLAINTS OF CHEST PAIN. PATIENT HAS HISTORY OF CHRONIC KIDNEY DISEASE, DIABETES MELLITUS, HID PHYSICIAL EXAMINATION: RESTING B.P.: 167/69 RESTING H.R.: 89 RESTING EKG: NORMAL SINUS RHYTHM PROTOCOL: PHARMACOLOGIC EXERCISE TIME: 3:30 B.P. AT [facility] STRESS: 143/68 IMPRESSION: LEXISCAN INJECTED. CARIOLITE INJECTED. SEE NUCLEAR MEDICINE REPORT. NO SUPRAVENTRICULAR TACHYCARDIA, VENTRIUCLAR TACHYCARDIA, PREMATURE ATRIAL COMPLEXES OR PREMATURE VENTRICULAR COMPLEXES NOTED. PATIENT DENIES CHEST PAIN.
[2022-09-29] MEDS: ROSUVASTATIN 10 MG TAB PO SCH (08:34)
[2022-09-29] MEDS: HYDRALAZINE HCL 25 MG TABLET PO SCH ×3 (08:34→20:29)
[2022-09-29] MEDS: ASPIRIN 81 MG CHEWABLE TABLET PO SCH (08:34)
[2022-09-29] MEDS: ACETYLCYST 20% 800 MG/4 ML VIAL PO SCH ×2 (08:34→20:30)
[2022-09-29] MEDS: carvediloL 6.25 MG TAB PO SCH ×2 (08:34→20:29)
[2022-09-29] MEDS: AMLODIPINE 5 MG TAB PO SCH ×2 (08:35→20:27)
--- NOTE | 2022-09-29 09:03 | CON ---
Date of Consultation: 09/28/2022 Reason For Consultation: Chest pain. History Of Present Illness: Jacquie is a 72-year-old with history of hypertension, diabetes, neuropat hy, dyslipidemia, renal insufficiency. Came in with substernal chest pain, radiating to the left arm , nonexertional, sharp. No nausea, vomiting, diaphoresis, PND, orthopnea, pedal edema, palpitation, or syncope. EKG is negative, SC has been ruled out. Creatinine is 2.21. Past Medical History: As stated above. Allergies: HE IS ALLERGIC TO PENICILLIN. Review of Systems: Negative. Social History: Negative. Family History: Positive for heart disease. Medications: The patient is on Norvasc, olmesartan, Farxiga, Crestor, glipizide, and metformin. Physical Examination: HEENT: Negative. Neck: Supple with no bruit. Chest: Clear. Cardiac: Normal. Abdomen: Benign. Extremities: Revealed no clubbing, cyanosis, or edema. Diagnostic Data: As stated earlier. Impression And Plan: Atypical chest pain in a patient with multiple cardiac risk factors including h ypertension, dyslipidemia, and diabetes. Creatinine 2.21 . We will prefer not to do any c oronary intervention unless we have to. I would like to see if he has any significant ischemia first . Echocardiogram is pending. Lexiscan is pending. Renal consultation is pending. He is presently on aspirin, hydralazine, Norvasc, and Lovenox, continue present regimen, see what the echo and Lexisc an shows, consider catheterization if the Lexiscan is positive. NB/MODL Voice ID: [id number] Report ID: [id number]
[2022-09-29] MEDS ORDERED: NA CHLORIDE 0.9% 500 ML ONE (09:51)
[2022-09-29] MEDS ORDERED: HEPA 1000U/500MLS 2,000 UNIT/1,000 ML BAG IV ONE (10:43)
[2022-09-29] MEDS ORDERED: VERAPAMIL HCL 10 MG/4 ML VIAL IV ONE (10:44)
[2022-09-29] MEDS ORDERED: FENTANYL CITR 100 MCG/2 ML ONE (10:44)
[2022-09-29] MEDS ORDERED: LIDOCAINE 1% 20 ML MDV ONE (10:44)
[2022-09-29] MEDS ORDERED: MIDAZOLAM HCL 2 MG/2 ML INJ ONE (10:44)
[2022-09-29] MEDS ORDERED: ATROPINE SULF 1 MG/10 ML SYR IV ONE (10:45)
[2022-09-29] MEDS ORDERED: CLOPIDOGREL 75 MG TABLET ONE (10:45)
[2022-09-29] MEDS ORDERED: TICAGRELOR 90 MG TABLET PO ONE (10:45)
[2022-09-29] MEDS ORDERED: ASPIRIN 325 MG TAB ONE (10:45)
[2022-09-29] MEDS ORDERED: HEPARIN 10,000 UNIT/10 ML VIAL IV ONE (10:45)
[2022-09-29] MEDS ORDERED: HEPARIN 5000 UNIT/ML 1 ML VIAL ONE (10:46)
[2022-09-29] MEDS ORDERED: ONDANSETRON 4 MG/2 ML VIAL ONE (13:15)
--- NOTE | 2022-09-29 13:37 | PN ---
Date of Progress Note: 09/29/2022 Subjective: Patient was admitted with [id number] TX. Patient had chronic kidney disease, had acute kidney injury secondary to cardiorenal. Patient was started on diuresis. The patient's kidney function stayed stable. Physical Examination: Vital Signs: Blood pressure 148/73, pulse of 75, afebrile. Patient had good urine output. Chest: Clear to auscultation. Heart: S1, S2. Regular. Abdomen: Soft, nontender. Extremity: No edema. Neurological: Alert. No focality. Laboratory Data: Hemoglobin 10.6, sodium 142, potassium 4.3, bicarb 27, BUN 28, creatinine 2.1, GFR of 32, uric acid 7.6, calcium 8.6, magnesium 2.2. PTH 111. Current Medications: The patient on, it includes: 1. Amlodipine 5 mg b.i.d. 2. Carvedilol 6.25 b.i.d. 3. Crestor. 4. Hydrocodone. 5. KCl. 6. Mucomyst. Assessment And Plan: 1. Acute kidney injury secondary to cardiorenal syndrome. Currently, patient is going to be exposed to contrast. I am going to start the patient on gentle hydration. We will hold the diuresis for the time being. Patient will be started on Mucomyst and we will follow up the patient. Patient is going to need followup 48 hours and 2 weeks after the contrast. 2. Hypertension, controlled, optimal. Keep holding DAYLIN inhibitor or ARB given the exposure to contrast. 3. Awp-GU-mwcqsfypj myocardial infarction, status post stress test, status post cardiac cath today. We will follow up with Cardiology as above for the kidney function also. 4. Hypokalemia, status post supplement. We will follow up. time spend exam the patient face to face reviewing data lab and radiology placing order , discussing with patient and nursing staff discussing with hospitalisit >35min MA/AALIYAH Voice ID: [id number] Report ID: [id number] RIYA
--- NOTE | 2022-09-29 13:52 | OP ---
Date of Procedure: 09/29/2022 Surgeon: WATSON BARRAZA Procedures Performed: 1.Selective coronary angiogram. 2.Left heart catheterization. 3.Percutaneous coronary intervention of proximal severe left anterior descending stenosis which is t he culprit. I used 3.5 x 60 mm Synergy drug-eluting stent. Indication: Acute coronary syndrome, likely unstable angina with positive stress test. Access: Right radial artery 6-Brazilian closed with TR band. Complications: None. Bleeding: Less than 20 mL. Anesthesia: Total sedation time was 40 minutes, used fentanyl and Versed. Description Of Procedure: After risks, benefits, alternatives were explained, patient agreed to proc edure and signed informed consent. Patient was brought into the cardiac catheterization laboratory, prepped and draped in usual sterile fashion. Then, I accessed right radial artery using pediatric mi cropuncture kit and ultrasound and placed a 6-Brazilian slender sheath and took 5-Brazilian Duck 4.[address] into the aortic root over a J-wire. Catheter was used to engage the left main, took standard vie ws and then in the RCA, took standard views. The catheter was pushed over the wire into the LV, alexandr ured the LVEDP. Pullback not recording gradient. Then we gave systemic heparin to assure ACT level above 250 throughout the procedure. Loaded with 600 mg of Plavix and 325 mg of aspirin. Then I took a 6-Brazilian EBU 3.5 guide into the aortic root over a J-wire, engaged the left main, took short Run-T hrough wire into the LAD, placed it distally and the proximal LAD severe stenosis was pre-dilated usi ng 3.5 balloons, excellent expansion. Then, I placed 3.5 x 60 mm Synergy drug-eluting stent with 0% residual stenosis and JERI-3 flow. Patient tolerated the procedure very well. Wire was removed. Fi nal angiogram was satisfactory. Guide was removed and the sheath was removed and placed TR band with good hemostasis. Findings: 1.Left main; large and normal. 2.LAD; proximal 95% stenosis, status post successful PCI as above. This is the culprit artery. The n diagonal branches are with luminal irregularities. No significant disease. Mid LAD has 30% to 40% long stenosis. Distal LAD appears to be normal. 3.Left circumflex: It is moderate size and nondominant with luminal irregularities. 4.RCA; large and dominant with luminal irregularities. 5.LVEDP is slightly elevated at 50 mmHg. Conclusion: 1.Severe proximal LAD stenosis, which is a culprit, status post PCI as above. 2.Slightly elevated LVEDP. 3.Moderate coronary artery disease elsewhere. Plan: Aspirin, Plavix, high-dose statin. Follow up with me in the office in 4 weeks postdischarge. SR/MODL Voice ID: [id number] Report ID: [id number]
[2022-09-29] MEDS: NA CHLORIDE 0.9% 1,000 ML IV SCH (17:02)
[2022-09-30 04:18] LABS: Albumin 3.1 g/dL (3.4-5.0); Phosphorus 3.8 mg/dL (2.5-4.9); Potassium 4.2 mEq/L (3.5-5.1)
--- NOTE | 2022-09-30 07:09 | P.PN ---
Date of Service: 09/30/22 Subjective: Feeling much better today no chest pain or SOB no new problems ROS: 10 point ROS as noted above, otherwise negative Physical Exam: GEN: Alert, oriented, NAD HEENT: Normal conjunctiva, sclera anicteric CV: Regular rate and rhythm, no edema Pulm: Nonlabored respirations on room air ABD: Soft, nontender, nondistended Neuro: Normal speech, normal affect, no focal deficit vitals reviewed Problem List: Unstable Angina; CAD, s/p PCI transient blurred vision, acute CKD 3B NIDDM2 Hypertension Anemia of chronic disease Hyperlipidemia Unstable Angina; CAD, s/p PCI Troponin - negative x3; multiple risk factors Echo - normal positive stress test Cardiac Cath 09/29 -Severe proximal LAD stenosis (95%), which is a culprit, s/p PCI Slightly elevated LVEDP. Moderate coronary artery disease elsewhere. will need to be monitored for ~48hrs after cath for renal function blurred vision unclear etiology; transient at home, resolved 09/[address] brain 09/28 - negative CKD 3B Stable. continue to monitor renal function Nephrology consulted renal u/s 09/28 - mild echogenic kidneys b/l NIDDM2 sliding scale insulin hold metformin Hypertension Poorly controlled. Continue home medications and hydralazine as needed Anemia of chronic disease H&H stable. continue to monitor hemoglobin and transfuse if less than 7.0. Hyperlipidemia Continue statin VTE: Lovenox Code: Full Dispo: Home, 1 day - monitor renal function, IVF after cath
[2022-09-30] MEDS: INSULIN -REGULAR HUMAN 50 UNIT/0.5 ML ML SQ SCH ×4 (07:30→20:48)
[2022-09-30] MEDS: HYDRALAZINE HCL 25 MG TABLET PO SCH ×3 (08:35→20:47)
[2022-09-30] MEDS: ASPIRIN 81 MG CHEWABLE TABLET PO SCH (08:36)
[2022-09-30] MEDS: AMLODIPINE 5 MG TAB PO SCH ×2 (08:36→20:47)
[2022-09-30] MEDS: CLOPIDOGREL 75 MG TABLET PO SCH (08:36)
[2022-09-30] MEDS: ROSUVASTATIN 10 MG TAB PO SCH (08:36)
[2022-09-30] MEDS: carvediloL 6.25 MG TAB PO SCH ×2 (08:37→20:47)
[2022-09-30] MEDS: ENOXAPARIN 40 MG/0.4 ML SQ SCH (08:38)
[2022-09-30 09:17] VITALS: O2SAT 94
[2022-09-30] MEDS: NA CHLORIDE 0.9% 1,000 ML IV SCH (11:37)
--- NOTE | 2022-09-30 17:26 | PN ---
Date of Progress Note: 09/30/2022 Subjective: The patient is status post cardiac cath with PTCA yesterday, tolerated very well. Physical Examination: Vital Signs: Blood pressure 121/61, pulse of 70, afebrile. Chest: Clear to auscultation. Heart: S1, S2. Regular. Abdomen: Soft, nontender. Extremities: No edema. Neurologic: Alert. No focality. Laboratory Data: Hemoglobin 10.7. Sodium 140, potassium 4.2, bicarb 26, BUN 30, creatinine 2.1, calcium 8.2, phosphorus 3.8, albumin 2.1. Current Medications: The patient on include; 1. Plavix. 2. Lovenox. 3. Aspirin. 4. Amlodipine 5 mg daily. 5. Carvedilol 6.25 b.i.d. 6. Hydralazine 100 t.i.d. 7. Tylenol. 8. Zofran. 9. IV fluid at 50 per hour. 10. Hydrocodone. Assessment And Plan: 1. Chronic kidney disease secondary to hypertension nephrosclerosis/IgA nephropathy. The patient has been approved on Filspari. The patient had cardiac cath. I am going to go ahead and protien 24 hours, discontinue IV fluid. We will continue to monitor the patient. The patient finished with Mucomyst. 2. Hypertension, controlled, optimal. Continue current medications. 3. Coronary artery disease, status post percutaneous transluminal coronary angioplasty. Follow up with Cardiology. We will hold IV fluid. The patient is going to need to follow up the lab tomorrow. If kidney function stays stable, okay to best discharge to follow up in 2-3 weeks with chemistry. 4. IgA nephropathy. The patient was started on Filspari as outpatient. time spend exam the patient face to face reviewing data lab and radiology placing order , discussing with patient and nursing staff discussing with hospitalisit >35min GIORGI/AALIYAH Voice ID: [id number] Report ID: [id number] RIYA
[2022-10-01 00:57] VITALS: TEMP 98.3
[2022-10-01 03:30] LABS: Albumin 3.1 g/dL (3.4-5.0); Phosphorus 3.6 mg/dL (2.5-4.9); Potassium 4.1 mEq/L (3.5-5.1)
--- NOTE | 2022-10-01 06:59 | P.DS ---
Admission Date: 09/29/22 Discharge Date: 10/01/22 Reason for Admission: Chest pain Consultations: Cardiology - Dr. Matos / Dr. Lin Nephrology - Dr. Ramachandran Brief History of Present Illness: 72yo M, PMH: DM 2, hypertension, CKD Patient presents with complaint of substernal chest pain onset this morning. Patient rated pain as 8/10 in severity and described pain as pressure in quality. Patient indicated that pain radiates to his neck. Patient spouse reported that yesterday patient blood pressure has been unstable and patient has been anxious. Patient reported associated signs and symptoms of tingling on the left fingers and generalized malaise. Patient denies any other signs and symptoms. Symptoms are aggravated or relieved by nothing. Patient decided to present to the hospital for medical evaluation. Hospital Course: Problem List: Unstable Angina; CAD, s/p PCI transient blurred vision, acute CKD 3B NIDDM2 Hypertension Anemia of chronic disease Hyperlipidemia Patient presented with substernal chest pain. Troponins were negative. Echocardiogram was normal. Cardiology was consulted. Stress test was positive so underwent cardiac cath which revealed ~95% proximal LAD stenosis, slightly elevated LVEDP, and moderate coronary artery disease elsewhere. He underwent successful stenting. Due to his chronic kidney disease, Nephrology was consulted and he was monitored for 48hrs post procedure and given IV fluids without any complications. Renal function remained stable. Aspirin 81mg daily new prescription for daily plavix sent by Cardiology. Due to CKD and cath procedure, he was started on carvedilol and his losartan was discontinued. Follow up with Nephrology in ~2-3 weeks with repeat lab work. continue other home chronic medications, including rosuvastatin. Resume metformin in 2 days Follow up: PCP 3-5 days Cardiology within ~4 weeks Nephrology ~2-3 weeks Physical Exam: GEN: Alert, oriented, NAD HEENT: Normal conjunctiva, sclera anicteric CV: Regular rate and rhythm, no edema Pulm: Nonlabored respirations on room air ABD: Soft, nontender, nondistended Neuro: Normal speech, normal affect, no focal deficit Vital Signs/Physical Exam: Temp Pulse Resp BP Pulse Ox 98.3 F 73 18 134/52 L 95 10/01/22 04:00 10/01/22 04:00 10/01/22 04:00 10/01/22 04:00 10/01/22 04:00 Laboratory Data at Discharge: WBC 4.30 thou/uL (4.3-10.9) 09/28/22 02:40 Hgb 10.6 g/dL (13.6-17.9) L D 09/28/22 02:40 Hct 30.5 % (39.6-49.0) L 09/28/22 02:40 Plt Count 191 thou/uL (152-406) 09/28/22 02:40 PT 10.5 SECONDS (9.2-12.8) 09/27/22 11:25 INR 0.88 09/27/22 11:25 Sodium 141 mEq/L (136-145) 10/01/22 02:44 Potassium 4.1 mEq/L (3.5-5.1) 10/01/22 02:44 BUN 30 mg/dL (7-18) H 10/01/22 02:44 Creatinine 2.03 mg/dL (0.70-1.30) H 10/01/22 02:44 Glucose 147 mg/dL (74-106) H 10/01/22 02:44 Uric Acid 7.6 mg/dL (3.5-7.2) H 09/29/22 02:55 Phosphorus 3.6 mg/dL (2.5-4.9) 10/01/22 02:44 Magnesium 2.2 mg/dL (1.6-2.4) 09/29/22 02:55 Total Bilirubin 0.5 mg/dL (0.2-1.0) 09/28/22 02:40 AST 17 U/L (15-37) 09/28/22 02:40 ALT 23 U/L (16-61) 09/28/22 02:40 Alkaline Phosphatase 49 U/L (45-117) 09/28/22 02:40 Home Medications: Amlodipine [Norvasc*] 5 mg PO BID 01/25/22 Glipizide [Glipizide ER] 5 mg PO DAILY 01/25/22 Hydralazine HCl 100 mg PO TID 01/25/22 Metformin ER [Glucophage ER*] 500 mg PO TID 01/25/22 Rosuvastatin Calcium 20 mg PO DAILY 01/25/22 Dapagliflozin Propanediol [Farxiga] 1 tab PO DAILY 09/27/22 Aspirin Chewable [Aspirin Chewable*] 81 mg PO DAILY tab.chew 10/01/22 Clopidogrel Bisulfate [Plavix*] 75 mg PO DAILY 10/01/22 carvediloL [Coreg*] 6.25 mg PO BID 30 Days #60 tab 10/01/22 New Medications: carvediloL [Coreg*] 6.25 mg PO BID 30 Days #60 tab Physician Discharge Instructions: Patient presented with substernal chest pain. Troponins were negative. Echocardiogram was normal. Cardiology was consulted. Stress test was positive so underwent cardiac cath which revealed ~95% proximal LAD stenosis, slightly elevated LVEDP, and moderate coronary artery disease elsewhere. He underwent successful stenting. Due to his chronic kidney disease, Nephrology was consulted and he was monitored for 48hrs post procedure and given IV fluids without any complications. Renal function remained stable. Aspirin 81mg daily new prescription for daily plavix sent by Cardiology. Due to CKD and cath procedure, he was started on carvedilol and his losartan was discontinued. Follow up with Nephrology in ~2-3 weeks with repeat lab work. continue other home chronic medications, including rosuvastatin. Resume metformin in 2 days Follow up: PCP 3-5 days Cardiology within ~4 weeks Nephrology ~2-3 weeks Followup: Mckenna Taylor DO [Primary Care Provider] - Time spent managing pt's care (in minutes): 45
[2022-10-01] MEDS: INSULIN -REGULAR HUMAN 50 UNIT/0.5 ML ML SQ SCH (07:30)
[2022-10-01] MEDS: ROSUVASTATIN 10 MG TAB PO SCH (08:32)
[2022-10-01] MEDS: carvediloL 6.25 MG TAB PO SCH (08:32)
[2022-10-01] MEDS: CLOPIDOGREL 75 MG TABLET PO SCH (08:32)
[2022-10-01] MEDS: AMLODIPINE 5 MG TAB PO SCH (08:33)
[2022-10-01] MEDS: ASPIRIN 81 MG CHEWABLE TABLET PO SCH (08:33)
[2022-10-01] MEDS: HYDRALAZINE HCL 25 MG TABLET PO SCH (08:33)
[2022-10-01 08:35] VITALS: BP 125/60
--- NOTE | 2022-10-01 15:47 | PN ---
The patient came in with fairly atypical chest pain, very positive stress test. Catheterization show ed very proximal LAD stenosis status post stent. The patient has done well after that. No hematoma. No arrhythmias. The patient can go home on aspirin, statin, Plavix or Brilinta, low-dose beta-bloc ker. We will see the patient in the office in the near future. He can go home today. ROMIE/AALIYAH Voice ID: [id number] Report ID: [id number]
[2022-10-03 14:21] LABS: Albumin, (SPE) 3.2 g/dL (3.8-4.8); Alpha-1-Globulins 0.2 g/dL (0.2-0.3); Alpha-2-Globulins 0.8 g/dL (0.5-0.9); Gamma Globulins 0.8 g/dL (0.8-1.7); INTERPRETATION REPORT
[2022-10-06 20:09] LABS: Beta Globulin 24 HR Urine 14 %; Gamma Globulin, 24hr Urine 13 %; Interpretation: REPORT; Protein/Crea Ratio in g 3640 mg/g creat (<100); Urine Alpha-2-Globulins, 24 Hr 9 %; Urine PEP Abn Protein Band1 REPORT; Urine Total Volume 24 Hours 1900 mL
== END 2022-10-01 09:41 | disposition home or self-care (01) | DRG 247 ==
LOC: ER 11:08 → ERHOLD 13:17 → 2ND 14:39 → OBSVTOIN 09-29 12:40
PROVIDERS: ADMIT Internal Medicine; ATTEND Hospitalist
PROC: 027034Z Dilation of Coronary Artery, One Artery with Drug-eluting Intraluminal Device, Percutaneous Approach (ICD-10-PCS; principal; 2022-09-29)
PROC: 4A023N7 Measurement of Cardiac Sampling and Pressure, Left Heart, Percutaneous Approach (ICD-10-PCS; 2022-09-29)
PROC: B2111ZZ Fluoroscopy of Multiple Coronary Arteries using Low Osmolar Contrast (ICD-10-PCS; 2022-09-29)
DX: I25.110 Atherosclerotic heart disease of native coronary artery with unstable angina pectoris (principal); N17.9 Acute kidney failure, unspecified; I12.9 Hypertensive chronic kidney disease with stage 1 through stage 4 chronic kidney disease, or unspecified chronic kidney disease; N18.32 Chronic kidney disease, stage 3b; E11.22 Type 2 diabetes mellitus with diabetic chronic kidney disease; E11.40 Type 2 diabetes mellitus with diabetic neuropathy, unspecified; D63.1 Anemia in chronic kidney disease; E87.6 Hypokalemia; H53.8 Other visual disturbances; E78.5 Hyperlipidemia, unspecified; D63.8 Anemia in other chronic diseases classified elsewhere; Z88.0 Allergy status to penicillin; Z90.49 Acquired absence of other specified parts of digestive tract; Z79.02 Long term (current) use of antithrombotics/antiplatelets; Z79.84 Long term (current) use of oral hypoglycemic drugs; Z87.891 Personal history of nicotine dependence; Z79.899 Other long term (current) drug therapy
CPT/HCPCS: 36415; 70450; 71045; 76770; 76937; 78452; 80048; 80053; 80069; 80076; 81001; 82550; 82947; 83735; 83880; 83970; 84100; 84165; 84166; 84439; 84443; 84484; 84550; 85025; 85347; 85379; 85610; 86021; 86334; 93005; 93017; 93306; 93458; 99285; A9500; C1725; C1893; C9600; G0378; J0360; J0461; J1644; J1650; J2001; J2250; J2405; J2785; J3010; J7030; J7040; Q9966

== ENCOUNTER 2024-05-30 13:58 | Emergency (ER) | payer OTHER ==
[2024-05-30 14:40] LABS: Absolute Eosinophils 0.2 K/uL (0-0.5); Absolute Lymphocytes (CBC) 1.3 K/uL (0.7-4.9); Absolute Monocytes 0.5 K/uL (0.1-1.3); Absolute Neutrophil 4.8 K/uL (1.8-8.0); Basophils % 0.6 % (0-1.3); Eosinophils % 2.5 % (0-4.4); Hematocrit 16.6 % (39.6-49.0); MCH 33.5 pg (27.0-35.0); MCHC 34.3 g/dL (32.0-36.0); MCV 97.5 fL (80-100); MPV 8.7 fL (7.6-11.3); Monocytes % 7.5 % (3.3-12.3); Neutrophils % 70.4 % (41.7-73.7); Nucleated Red Blood Cells % 0.2 % (0-0); Platelets 267 thou/uL (152-406); Red Cell Distribution Width 15.3 % (12.1-15.2)
[2024-05-30 14:42] LABS: Hemoglobin 5.7 g/dL (13.6-17.9)
--- NOTE | 2024-05-30 14:43 | RAD REPORT ---
EXAMINATION: ONE VIEW CHEST XR CLINICAL INDICATION: COUGH TECHNIQUE: Frontal chest projection is submitted. Examination is limited by patient positioning and t echnique. COMPARISON: 09/27/2022 FINDINGS: Calcified granuloma right lower lung is unchanged and benign. The lungs otherwise are grossly clear. The heart is upper limit of normal in size. No displaced fractures identified.
[2024-05-30 14:45] LABS: PT Prothrombin Time 12.7 SECONDS (9.4-12.5); PTT, Activated Partial Thromb 27.2 SECONDS (24.3-36.9); Protime INR 1.21
[2024-05-30 14:54] LABS: Anion Gap 12.8 mEq/L (5.0-15.0); Potassium 4.8 mEq/L (3.5-5.1); Troponin High Sensitivity 7.6 pg/mL (<58.9)
[2024-05-30 15:05] LABS: SARS-CoV-2 Antigen CONTROL BLUE LINE VIS/BG OK; SARS-CoV-2 Antigen Rapid Res Negative (Negative)
[2024-05-30] MEDS ORDERED: PANTOPRAZOLE INJ 80 MG in NA CHLORIDE 0.9% 250 ML IV SCH (15:11)
--- NOTE | 2024-05-30 15:13 | RAD REPORT ---
EXAMINATION: CT ABDOMEN AND PELVIS WITHOUT CONTRAST CLINICAL INDICATION: ABD PAIN TECHNIQUE: CT abdomen and pelvis was performed, without IV contrast, as per department protocol. Axia l, sagittal and coronal reconstructions were obtained. One or more of the following dose reduction techniques were used: Automated exposure control, adjustment of the mA and kV according to the patien t size, and iterative reconstruction. Unless otherwise specified, incidental findings do not require dedicated imaging follow-up. COMPARISON: No prior exam. FINDINGS: The lack of intravenous contrast limits the sensitivity of this exam for evaluation of solid visceral organs, vascular structures, and retroperitoneum. LOWER CHEST: The visualized lung bases are clear. LIVER:Normal in size and contour. No focal lesion. Grossly unremarkable gallbladder. SPLEEN: Normal size. No focal lesion. PANCREAS: No mass, ductal dilation, or dawson-pancreatic fluid. ADRENALS: Normal; no mass. KIDNEYS AND URETERS: Normal size and contour. No hydronephrosis. URINARY BLADDER: Normal contour. GASTROINTESTINAL TRACT: No evidence of bowel obstruction, significant free fluid, free air or abscess . Prominent sigmoid diverticulosis coli without diverticulitis. APPENDIX: Appendix not visualized, but no inflammatory changes in region of appendix. LYMPH NODES: No lymphadenopathy. MUSCULOSKELETAL: Moderate lower lumbar spondylosis. ADDITIONAL FINDINGS: None. IMPRESSION: No acute or concerning abnormalities in the abdomen or pelvis, with evaluation limited by lack of IV contrast. Sigmoid diverticulosis coli.
--- NOTE | 2024-05-30 15:20 | ER ---
Nurse's Notes [facility] Name: Abner Dhillon Jr Age: 74 yrs Sex: Male : 1950 Arrival Date: 05/30/2024 Time: 13:58 Bed 4 Private MD: Diagnosis: Anemia, unspecified;GI Bleed/ Gastrointestinal hemorrhage, unspecified Presentation: 05/30 14:04 Chief complaint: EMS states: toned out for CP and SOB x 3-4 days. Pain is epigastric me1 and radiates to the back 10/16. Denies n/v/d, No fever, no cough or congestion. Patient reports that today he is so weak that both legs gave out. No fall. BGL 222. Established a 20g L hand. Coronavirus screen: At this time, the client does not indicate any symptoms associated with coronavirus-19. Ebola Screen: No symptoms or risks identified at this time. Initial Sepsis Screen: Does the patient meet any 2 criteria? No. Patient's initial sepsis screen is negative. Risk Assessment: Do you want to hurt yourself or someone else? Patient reports no desire to harm self or others. Onset of symptoms was May 27, 2024. 14:04 Method Of Arrival: EMS: [facility] me1 14:04 Acuity: JOSE 3 me1 18:44 Initial Sepsis Screen: Does the patient have a suspected source of infection? No. bp Patient's initial sepsis screen is negative. Triage Assessment: 14:10 General: Appears in no apparent distress. Behavior is calm, cooperative, appropriate bp for age. Pain: Denies pain. EENT: No deficits noted. Neuro: Reports weakness GENERALIZED. Cardiovascular: No deficits noted. Respiratory: No deficits noted. GI: No signs and/or symptoms were reported involving the gastrointestinal system. : No signs and/or symptoms were reported regarding the genitourinary system. Derm: No deficits noted. Musculoskeletal: No deficits noted. Historical: - Allergies: 14:07 PENICILLINS; me1 - PMHx: 14:07 diabetes mellitus; Hypertensive disorder; Kidney disease; me1 - PSHx: 14:07 PSHx:; Coronary Angioplasty; Appendectomy; FÉLIX knee; félix shoulder; me1 - Immunization history:: Adult Immunizations up to date. - Infectious Disease History:: Denies. - Social history:: Smoking status: Patient denies any tobacco usage or history of. Screenin:30 [facility] ED Fall Risk Assessment (Adult) History of falling in the last 3 months, bp including since admission No falls in past 3 months (0 pts) Confusion or Disorientation No (0 pts) Intoxicated or Sedated No (0 pts) Impaired Gait No (0 pts) Mobility Assist Device Used No (0 pt) Altered Elimination No (0 pt) Score/Fall Risk Level 0 - 2 = Low Risk Oriented to surroundings. Abuse screen: Denies threats or abuse. Denies injuries from another. Nutritional screening: No deficits noted. Tuberculosis screening: No symptoms or risk factors identified. Assessment: 14:10 General: Appears in no apparent distress. Behavior is calm, cooperative, appropriate bp for age. Pain: Denies pain. Neuro: No deficits noted. Cardiovascular: No deficits noted. Respiratory: No deficits noted. GI: No signs and/or symptoms were reported involving the gastrointestinal system. : No signs and/or symptoms were reported regarding the genitourinary system. EENT: No deficits noted. Derm: No deficits noted. Musculoskeletal: No deficits noted. 17:02 Reassessment: PRBC INITIATED. bp 17:43 Reassessment: REPORT TO SREEDHAR SINGER AT [facility]. bp 18:42 Reassessment: PT GABRIEL WITH EMS. bp Vital Signs: 14:04 BP 119 / 62; Pulse 97; Resp 17; Temp 97.9; Pulse Ox 100% ; Weight 94.8 kg; Height 5 ft. me1 9 in. ; Pain 6/10; 17:00 BP 120 / 51; Pulse 90; Resp 15; Temp 97.2; Pulse Ox 100% ; bp 18:42 BP 122 / 66; Pulse 84; Resp 14; Temp 97.5; Pulse Ox 100% ; bp 14:04 Body Mass Index 30.86 (94.80 kg, 175.26 cm) me1 14:04 Pain Scale: Adult me1 ED Course: 14:01 Patient arrived in ED. ec2 14:01 Yash Alvarenga MD is Attending Physician. ec2 14:03 Ila Baker, LUCRECIA is Primary Nurse. me1 14:07 Triage completed. me1 14:07 Arm band placed on Patient placed in an exam room. me1 14:23 Initial lab(s) drawn, by me, sent to lab. EKG done, by ED staff, reviewed by Ysah Alvarenga MD. Inserted saline lock: 22 gauge in left forearm, using aseptic technique. Blood collected. Flushed with 10 mL NS. 14:38 XRAY Chest (1 view) In Process Unspecified. EDMS 14:41 Notified ED physician of a critical lab result(s). HBG 5.7. Dr. Alvarenga. ll1 14:57 CT Abd/Pelvis - Without Contrast In Process Unspecified. EDMS 15:25 INITIATED TRANSFER WITH JOSI AT [facility]. bc6 15:30 Consent for blood and/or blood product transfusion explained by staff, signed by spouse.bp 15:30 Patient has correct armband on for positive identification. bp 17:05 received acceptance with Kayla robertson for [facility] 408. bc6 17:44 No provider procedures requiring assistance completed. Patient transferred, IV remains bp in place. 17:45 [facility] with [facility] accepted transfer. 6 18:42 Provided Education on: Blood Transfusion. bp Administered Medications: 15:30 Drug: Pantoprazole IV 8 mg/hr IV at 25 ml/hr continuous; (Standard dilution is 80 mg in bp 250 mL NS) Route: IV; Rate: 25 ml/hr; Site: right wrist; 18:43 Follow up: IV Status: Infusion continued upon transfer bp 15:30 Drug: Pantoprazole IVP 80 mg IVP once Route: IVP; Site: right wrist; bp 18:43 Follow up: Response: No adverse reaction bp Medication: 18:42 VIS not applicable for this client. bp Outcome: 15:19 ER care complete, transfer ordered by . ec2 18:42 Transferred by ground EMS to [facility], bp 18:42 Condition: stable 18:42 Instructed on the need for transfer, 18:44 Patient left the ED. bp Signatures: Dispatcher [employer] EDHugo Macias, RN RN bp Amy Perez RN RN 1 Tyesha Singh 6 Ila Baker RN RN me1 Yash Alvarenga MD MD ec2 Corrections: (The following items were deleted from the chart) 17:45 17:05 Trauma Team received acceptance with Kayla robertson for [facility] 408 bc6 bc6
--- NOTE | 2024-05-30 15:20 | EDPHYS ---
Physician Documentation [facility] Name: Abner Dhillon Jr Age: 74 yrs Sex: Male : 1950 Arrival Date: 05/30/2024 Time: 13:58 Bed 4 Private MD: ED Physician Yash Alvarenga HPI: 05/30 14:25 This 74 yrs old Male presents to ER via EMS with complaints of weakness. ec2 14:25 Patient arrives today for evaluation of weakness. Patient reports that has been ec2 experiencing generalized weakness ongoing for the past several days. Reports no cough or cold symptoms. Reports that he was told he was previously anemic. Denies any chest pain. Reports some occasional shortness of breath. History of hypertension, diabetes, CKD.. Historical: - Allergies: 14:07 PENICILLINS; me1 - PMHx: 14:07 diabetes mellitus; Hypertensive disorder; Kidney disease; me1 - PSHx: 14:07 PSHx:; Coronary Angioplasty; Appendectomy; FÉLIX knee; félix shoulder; me1 - Immunization history:: Adult Immunizations up to date. - Infectious Disease History:: Denies. - Social history:: Smoking status: Patient denies any tobacco usage or history of. ROS: 14:25 Constitutional: as per hpi ec2 Exam: 14:25 Constitutional: GEN: NAD Head: atraumatic Eyes: EOMI Ears: External ears are ec2 normal. CV: regular rate LUNGS: no respiratory distress ABD: non-distended, soft, nontender, no guarding, not rigid. : Performed under nursing supervision, LUCRECIA Arias, light brown stool in color, no melena noted. SKIN: no evidence of rashes MSK: no evidence of trauma Vital Signs: 14:04 BP 119 / 62; Pulse 97; Resp 17; Temp 97.9; Pulse Ox 100% ; Weight 94.8 kg; Height 5 ft. me1 9 in. ; Pain 6/10; 17:00 BP 120 / 51; Pulse 90; Resp 15; Temp 97.2; Pulse Ox 100% ; bp 18:42 BP 122 / 66; Pulse 84; Resp 14; Temp 97.5; Pulse Ox 100% ; bp 14:04 Body Mass Index 30.86 (94.80 kg, 175.26 cm) me1 14:04 Pain Scale: Adult me1 MDM: 14:01 Medical Screening Exam initiated ec2 14:25 Data reviewed: vital signs, nurses notes. ED course: Patient arrives today for ec2 evaluation of generalized weakness. Examination is unrevealing. Will obtain a cardiac workup. Differential includes electrolyte disturbances, anemia, dehydration, arrhythmia.. 14:26 ED course: EKG independently reviewed and interpreted by me, shows normal sinus rhythm, ec2 rate of 92, no acute ST segment elevations, intervals are nonactionable.. 14:42 ED course: Further discussion with patient indicates that he noted dark stool earlier ec2 today. My rectal examination was unrevealing. Patient is anemic with a hemoglobin in the fives, will transfuse, will transfer to GI capable facility.. 15:19 ED course: CT abdomen pelvis shows diverticulosis with no complication. Will transfer ec2 for GI capable facility. Metabolic profile shows renal dysfunction.. 15:41 ED course: I discussed case with hospitalist at [facility] who agrees ec2 accept patient for transfer. We updated regarding plan of care.. 05/30 14:02 Order name: Basic Metabolic Panel; Complete Time: 15:18 2 05/30 14:02 Order name: CBC with Diff; Complete Time: 15:18 2 05/30 14:02 Order name: NT PRO-BNP; Complete Time: 15:18 2 05/30 14:02 Order name: Troponin HS; Complete Time: 15:18 2 05/30 14:02 Order name: Influenza Screen (a \T\ B); Complete Time: 15:18 2 05/30 14:02 Order name: SARS RAPID; Complete Time: 15:18 2 05/30 14:23 Order name: Type And Screen [facility] 05/30 14:23 Order name: Protime (+inr); Complete Time: 15:18 [facility] 05/30 14:23 Order name: Ptt, Activated; Complete Time: 15:18 [facility] 05/30 14:50 Order name: Packed RBC Leukored [facility] 05/30 16:03 Order name: ABO/RH no charge [facility] 05/30 14:02 Order name: XRAY Chest (1 view); Complete Time: 15:18 2 05/30 14:42 Order name: CT Abd/Pelvis - Without Contrast; Complete Time: 15:18 2 05/30 14:02 Order name: EKG; Complete Time: 14:02 ec2 05/30 14:02 Order name: Cardiac monitoring; Complete Time: 14:23 ec2 05/30 14:02 Order name: EKG - Nurse/Tech; Complete Time: 14:23 ec2 05/30 14:02 Order name: IV Saline Lock; Complete Time: 14:23 ec2 05/30 14:02 Order name: Labs collected and sent; Complete Time: 14:23 ec2 05/30 14:02 Order name: O2 Per Protocol; Complete Time: 14:23 ec2 05/30 14:02 Order name: O2 Sat Monitoring; Complete Time: 14:23 ec2 05/30 14:42 Order name: Consent for Blood Transfusion; Complete Time: 15:58 ec2 Administered Medications: 15:30 Drug: Pantoprazole IV 8 mg/hr IV at 25 ml/hr continuous; (Standard dilution is 80 mg in bp 250 mL NS) Route: IV; Rate: 25 ml/hr; Site: right wrist; 18:43 Follow up: IV Status: Infusion continued upon transfer bp 15:30 Drug: Pantoprazole IVP 80 mg IVP once Route: IVP; Site: right wrist; bp 18:43 Follow up: Response: No adverse reaction bp Disposition Summary: 05/30/24 15:19 Transfer Ordered Notes: Transfer Location: Other Acute Care Facility ec2 Reason: Higher level of care ec2 Condition: Stable ec2 Problem: new ec2 Symptoms: are unchanged ec2 Accepting Physician: transferring doc(05/30/24 18:44) bp Diagnosis - Anemia, unspecified ec2 - GI Bleed/ Gastrointestinal hemorrhage, unspecified ec2 Forms: - Medication Reconciliation Form ec2 - SBAR form ec2 Critical care time excluding procedures: 15:19 Critical care time: Bedside Care: 30 minutes, Consultation: 5 minutes. Total time: 35 ec2 minutes Signatures: Dispatcher [employer] Hugo Moreno, LUCRECIA RN bp Ila Baker RN RN id1 Yash Alvarenga MD MD ec2 Corrections: (The following items were deleted from the chart) 14:23 14:23 TYPE AND SCREEN+BB.LAB.BRZ ordered. EDNM EDMS 14:23 14:23 PROTIME (+INR)+COAG.LAB.BRZ ordered. EDMS EDMS 14: 14:23 PTT, ACTIVATED+COAG.LAB.BRZ ordered. EDMS EDMS 14: 14:42 PACKED RBC LEUKORED+BB.LAB.BRZ ordered. EDMS EDMS 18:44 15:19 transferring doc ec2 bp
[2024-05-30] MEDS ORDERED: PANTOPRAZOLE 40 MG INJ ONE (15:53)
[2024-05-30] MEDS ORDERED: NA CHLORIDE 0.9% 250 ML ONE (16:54)
[2024-05-30 21:37] VITALS: O2SAT 100
[2024-05-30 21:44] VITALS: BP 122/66; TEMP 97.5
== END 2024-05-30 18:44 ==
LOC: ER 13:58
PROC: 30233N1 Transfusion of Nonautologous Red Blood Cells into Peripheral Vein, Percutaneous Approach (ICD-10-PCS; principal; 2024-05-30)
DX: D64.9 Anemia, unspecified (principal); R53.1 Weakness; E11.9 Type 2 diabetes mellitus without complications; I10 Essential (primary) hypertension; Z11.52 Encounter for screening for COVID-19
CPT/HCPCS: 85025; 80048; 36415; 86900; 86850; 85610; 86901; 85730; 86920 ×2; 84484; 83880; 87804 ×2; 74176; 71045; 87811; 36430; J2470 ×2; P9016; J7050 ×2

== ENCOUNTER 2024-09-28 09:03 | Emergency (ER) | payer OTHER ==
[2024-09-28] MEDS ORDERED: TDAP (DIPHTH,PERTUSS(ACELL),TET VAC) 0.5 ML VIAL IMVAC ONE (09:52)
[2024-09-28] MEDS ORDERED: LIDOCAINE 2% W/EPI 1:200,000 MPF 20 ML VIAL IM ONE (09:52)
[2024-09-28] MEDS ORDERED: CEPHALEXIN 250 MG CAP ONE (10:53)
--- NOTE | 2024-09-28 11:11 | ER ---
Nurse's Notes [facility] Name: Abner Dhillon Jr Age: 74 yrs Sex: Male : 1950 Arrival Date: 09/28/2024 Time: 09:03 Bed 6 Private MD: Diagnosis: Laceration without foreign body of other part of head Presentation: 09/28 09:05 Chief complaint: Patient states: "I was replacing a 4x4 and the carport got me". aa5 Laceration noted to forehead, bleeding controlled. Negative LOC. 09:05 Coronavirus screen: At this time, the client does not indicate any symptoms associated aa5 with coronavirus-19. Ebola Screen: Patient denies travel to an Ebola-affected area in the 21 days before illness onset. Complicating Factors: There are no complicating factors for this patient. Initial Sepsis Screen: Does the patient meet any 2 criteria? No. Patient's initial sepsis screen is negative. Does the patient have a suspected source of infection? No. Patient's initial sepsis screen is negative. Risk Assessment: Do you want to hurt yourself or someone else? Patient reports no desire to harm self or others. Onset of symptoms was September 28, 2024. 09:05 Acuity: JOSE 3 aa5 09:05 Method Of Arrival: Ambulatory aa5 Triage Assessment: 11:00 General: Behavior is calm, cooperative. Injury Description: Laceration sustained to iw forehead. 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 - Infectious Disease History:: Denies. - Social history:: Smoking status: Patient denies any tobacco usage or history of. Screenin:42 [facility] ED Fall Risk Assessment (Adult) History of falling in the last 3 months, kc6 including since admission No falls in past 3 months (0 pts) Confusion or Disorientation No (0 pts) Intoxicated or Sedated No (0 pts) Impaired Gait No (0 pts) Mobility Assist Device Used No (0 pt) Altered Elimination No (0 pt) Score/Fall Risk Level 0 - 2 = Low Risk Oriented to surroundings. Abuse screen: Denies threats or abuse. Denies injuries from another. Nutritional screening: No deficits noted. Tuberculosis screening: No symptoms or risk factors identified. Assessment: 10:00 General: Appears in no apparent distress. Pain: Complains of pain in head. iw Musculoskeletal: Range of motion:. 10:00 Neuro: Level of Consciousness is awake, alert, obeys commands, Oriented to person, iw place, time, situation, Moves all extremities. Cardiovascular: Patient's skin is warm and dry. Respiratory: Respiratory effort is even, unlabored, Respiratory pattern is regular, symmetrical. Derm: Skin is healthy with good turgor. 11:07 Reassessment: Patient appears in no apparent distress at this time. Patient and/or iw family updated on plan of care and expected duration. Pain level reassessed. Vital Signs: 09:05 BP 143 / 63; Pulse 67; Resp 19 S; Temp 97.9(TE); Pulse Ox 98% on R/A; Weight 87.09 kg aa5 (R); Height 5 ft. 9 in. (R); 11:07 BP 136 / 84; Pulse 61; Resp 16; Pulse Ox 98% on R/A; Pain 0/10; iw 09:05 Body Mass Index 28.35 (87.09 kg, 175.26 cm) aa5 11:07 Pain Scale: Adult iw ED Course: 09:03 Arm band placed on Patient placed in an exam room, on a stretcher. aa5 09:04 Patient arrived in ED. im 09:07 Sagar Carrizales MD is Attending Physician. tho 09:07 Lindsay Kate, RN is Primary Nurse. iw 09:13 Triage completed. aa5 10:41 Assist provider with laceration repair on forehead that was between 2.6 to 7.5 cm using kc6 sutures. Set up tray. Performed by Sagar Carrizales MD Dressed with 4X4s, Patient tolerated well. Patient did not have IV access during this emergency room visit. Patient maintains SpO2 saturation greater than 95% on room air. 10:42 Patient has correct armband on for positive identification. Bed in low position. Call kc6 light in reach. Side rails up X 1. Adult w/ patient. Pulse ox on. NIBP on. Door closed. Noise minimized. Lights dimmed. Pillow given. Verbal reassurance given. 11:07 Provided Education on: d/c instructions . iw Administered Medications: 10:19 Drug: Boostrix Tdap IM 0.5 ml IM once; as a single dose Route: IM; Site: right deltoid; iw 10:30 Follow up: Response: No adverse reaction iw 10:41 Drug: Lidocaine-Epinephrine Infiltration -1%: (1:100,000) 5 ml 20 ml Infiltration once; kc6 to bedside Volume: 20 ml; Route: Infiltration; 11:04 Drug: Kinpbejd-Qaovobotxc-Tsnvnjerp Topical Ointment 1 application Topical once Route: iw Topical; Site: affected area; 11:04 Drug: Cephalexin PO 500 mg PO once Route: PO; iw 11:17 Follow up: Response: No adverse reaction iw Medication: 11:00 VIS not applicable for this client. iw Outcome: 11:10 Discharge ordered by MD. nettles 11:17 Discharged to home ambulatory, with family, iw 11:17 Condition: good 11:17 Discharge instructions given to patient, family, Instructed on discharge instructions, follow up and referral plans. medication usage, Demonstrated understanding of instructions, follow-up care, medications, Prescriptions given X 1, 11:18 Patient left the ED. iw Signatures: Sagar Carrizales MD MD cha Williams, Irene, RN RN Queenie Rivera RN RN Lilliana Aguila RN RN kc6 Mariella Sarah Corrections: (The following items were deleted from the chart) 09:11 09:09 Arm band placed on Patient placed in an exam room, on a stretcher, yunior mojica
--- NOTE | 2024-09-28 11:11 | EDPHYS ---
Physician Documentation [facility] Name: Abner Dhillon Jr Age: 74 yrs Sex: Male : 1950 Arrival Date: 09/28/2024 Time: 09:03 Bed 6 Private MD: ED Physician Sagar Carrizales HPI: 09/28 10:57 This 74 yrs old Male presents to ER via Ambulatory with complaints of tho Laceration To Forehead. 10:57 The patient has a laceration related to: doing yard work. The laceration(s) is(are) tho located on the forehead. Onset: The symptoms/episode began/occurred just prior to arrival. Associated signs and symptoms: The patient has no apparent associated signs or symptoms. The patient has not experienced similar symptoms in the past. 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 - Infectious Disease History:: Denies. - Social history:: Smoking status: Patient denies any tobacco usage or history of. ROS: 11:00 Constitutional: Negative for fever, chills, and weight loss, Eyes: Negative for injury, tho pain, redness, and discharge, ENT: Negative for injury, pain, and discharge, Neck: Negative for injury, pain, and swelling, Cardiovascular: Negative for chest pain, palpitations, and edema, Respiratory: Negative for shortness of breath, cough, wheezing, and pleuritic chest pain, Abdomen/GI: Negative for abdominal pain, nausea, vomiting, diarrhea, and constipation, Back: Negative for injury and pain, : Negative for injury, bleeding, discharge, and swelling, MS/Extremity: Negative for injury and deformity, Neuro: Negative for headache, weakness, numbness, tingling, and seizure, Psych: Negative for depression, anxiety, suicide ideation, homicidal ideation, and hallucinations, Allergy/Immunology: Negative for hives, rash, and allergies, Endocrine: Negative for neck swelling, polydipsia, polyuria, polyphagia, and marked weight changes, Hematologic/Lymphatic: Negative for swollen nodes, abnormal bleeding, and unusual bruising, 11:00 Skin: Positive for laceration(s), Exam: 11:00 Constitutional: This is a well developed, well nourished patient who is awake, alert, tho and in no acute distress. Eyes: Pupils equal round and reactive to light, extra-ocular motions intact. Lids and lashes normal. Conjunctiva and sclera are non-icteric and not injected. Cornea within normal limits. Periorbital areas with no swelling, redness, or edema. ENT: Nares patent. No nasal discharge, no septal abnormalities noted. Tympanic membranes are normal and external auditory canals are clear. Oropharynx with no redness, swelling, or masses, exudates, or evidence of obstruction, uvula midline. Mucous membranes moist. Neck: Trachea midline, no thyromegaly or masses palpated, and no cervical lymphadenopathy. Supple, full range of motion without nuchal rigidity, or vertebral point tenderness. No Meningismus. Chest/axilla: Normal chest wall appearance and motion. Nontender with no deformity. No lesions are appreciated. Cardiovascular: Regular rate and rhythm with a normal S1 and S2. No gallops, murmurs, or rubs. Normal PMI, no JVD. No pulse deficits. Respiratory: Lungs have equal breath sounds bilaterally, clear to auscultation and percussion. No rales, rhonchi or wheezes noted. No increased work of breathing, no retractions or nasal flaring. Abdomen/GI: Soft, non-tender, with normal bowel sounds. No distension or tympany. No guarding or rebound. No evidence of tenderness throughout. Back: No spinal tenderness. No costovertebral tenderness. Full range of motion. MS/ Extremity: Pulses equal, no cyanosis. Neurovascular intact. Full, normal range of motion., bilateral aka Neuro: Awake and alert, GCS 15, oriented to person, place, time, and situation. Cranial nerves II-XII grossly intact. Motor strength 5/5 in all extremities. Sensory grossly intact. Cerebellar exam normal. Normal gait. Psych: Awake, alert, with orientation to person, place and time. Behavior, mood, and affect are within normal limits. 11:00 Skin: injury, laceration(s), the wound is approximately 3 cm(s), with a depth of .25 cm(s), of the forehead, Vital Signs: 09:05 BP 143 / 63; Pulse 67; Resp 19 S; Temp 97.9(TE); Pulse Ox 98% on R/A; Weight 87.09 kg aa5 (R); Height 5 ft. 9 in. (R); 11:07 BP 136 / 84; Pulse 61; Resp 16; Pulse Ox 98% on R/A; Pain 0/10; iw 09:05 Body Mass Index 28.35 (87.09 kg, 175.26 cm) aa5 11:07 Pain Scale: Adult iw Laceration: 11:07 Wound Repair of 3cm ( 1.2in ) subcutaneous laceration to forehead. Irregularly shaped.. tho Distal neuro/vascular/tendon intact. Anesthesia: Local anesthetic administered with 8 mls of 1% lidocaine w/ Epi. Wound prep: Moderate cleansing by me. Skin closed with 5 Prolene using simple sutures and sterile technique. Dressed with Neosporin. Patient tolerated well. MDM: 09:07 Medical Screening Exam initiated [facility] 11:08 Differential diagnosis: superficial laceration. Data reviewed: vital signs, nurses [facility] notes. Consideration of Admission/Observation Escalation of care including admission/observation considered. I considered the following discharge prescriptions or medication management in the emergency department Medications were administered in the Emergency Department. See MAR. Test considered but Not performed: Labs: no labs. Historians other than the Patient: Spouse/Significant Other: well informed. Care significantly affected by the following chronic conditions: Diabetes, Hypertension, Chronic Kidney Disease. 09/28 09:39 Order name: Dressing - Wound; Complete Time: 09:50 [facility] 09/28 09:39 Order name: Gloves, Sterile; Complete Time: 09:50 [facility] 09/28 09:39 Order name: Prolene, Sutures; Complete Time: 09:50 [facility] 09/28 09:39 Order name: Setup Suture Tray; Complete Time: :50 [facility] Administered Medications: 10:19 Drug: Boostrix Tdap IM 0.5 ml IM once; as a single dose Route: IM; Site: right deltoid; iw 10:30 Follow up: Response: No adverse reaction iw 10:41 Drug: Lidocaine-Epinephrine Infiltration -1%: (1:100,000) 5 ml 20 ml Infiltration once; kc6 to bedside Volume: 20 ml; Route: Infiltration; 11:04 Drug: Qbwwtuhw-Vfnsognhbk-Fqhptxsuh Topical Ointment 1 application Topical once Route: iw Topical; Site: affected area; 11:04 Drug: Cephalexin PO 500 mg PO once Route: PO; iw 11:17 Follow up: Response: No adverse reaction iw Disposition Summary: 09/28/24 11:10 Discharge Ordered Notes: Location: Home tho Problem: new tho Symptoms: have improved tho Condition: Stable tho Diagnosis - Laceration without foreign body of other part of head tho Followup: tho - With: Private Physician - When: 2 - 3 days - Reason: Recheck today's complaints, Continuance of care, Re-evaluation by your physician Discharge Instructions: - Discharge Summary Sheet tho - Head Injury, Adult tho - Laceration Care, Adult tho - Facial Laceration tho - Facial Laceration, [id number] tho - Head Injury, Adult, Qqej-[id number] tho Forms: - Medication Reconciliation Form tho - Antibiotic Education tho - Prescription Opioid Use tho - Patient Portal Instructions [facility] - Leadership Thank You Letter [facility] Prescriptions: - Neosporin ([id number]) 3.5mg-400 unit- 5,000 unit/gram Topical ointment - apply 1 application TOPICAL route 3 times per day; 15 gram tube; Refills: 0, tho Product Selection Permitted - Cephalexin 500 mg Oral Capsule - take 1 capsule ORAL route every 6 hours for 10 days; 40 capsule; Refills: 0, tho Product Selection Permitted Signatures: Sagar Carrizales MD MD cha Williams, Irene, RN RN iw Calderon, Audri, RN RN aa5 Lilliana Saleem RN RN kc6 Corrections: (The following items were deleted from the chart) 11:08 11:00 Wound Repair of 3cm ( 1.2in ) subcutaneous laceration to forehead. Irregularly tho shaped.. Distal neuro/vascular/tendon intact. Anesthesia: Local anesthetic administered with 10 mls of 1% lidocaine w/ Epi. Wound prep: Moderate cleansing with betadine. Skin closed with 7 5-0 Prolene using interrupted sutures and sterile technique. Dressed with Neosporin. Patient tolerated well. tho
[2024-09-28 11:29] VITALS: TEMP 97.9; O2SAT 98
[2024-09-28 11:30] VITALS: BP 136/84
== END 2024-09-28 11:18 | disposition home or self-care (01) ==
LOC: ER 09:03
DX: S01.81XA Laceration without foreign body of other part of head, initial encounter (principal); Z23 Encounter for immunization
CPT/HCPCS: 12002; 90715; 96372; 99284